=== PATIENT | female | born 1995 | race Two or more races ===

== ENCOUNTER 2019-11-02 21:21 | Observation (INO) | payer MEDICAID ==
[~2019-11-02] VITALS: Ht 157.5 cm; Wt 74.8 kg
[2019-11-02] MEDS ORDERED: PREN1TAB78 PO (22:04)
[2019-11-02] MEDS ORDERED: FERR-71 PO (22:04)
== END 2019-11-03 02:10 | disposition home or self-care (01) ==
LOC: 8 EST LDRP 21:21
PROVIDERS: ADMIT Obstetrics & Gynecology; ATTEND Obstetrics & Gynecology
DX: O9A.213 Injury, poisoning and certain other consequences of external causes complicating pregnancy, third trimester (principal); O36.8130 Decreased fetal movements, third trimester, not applicable or unspecified; Z3A.37 37 weeks gestation of pregnancy; V89.2XXA Person injured in unspecified motor-vehicle accident, traffic, initial encounter; Y93.9 Activity, unspecified; Y92.9 Unspecified place or not applicable; Y99.9 Unspecified external cause status
CPT/HCPCS: 76805; 76818; 99281; G0378

== ENCOUNTER 2019-11-18 11:38 | Inpatient (IN) | payer MEDICAID, OTHER ==
[~2019-11-18] VITALS: Ht 157.5 cm; Wt 75.7 kg
[~2019-11-18 11:38] MED LIST: FERR-71 PO; PREN1TAB78 PO
[2019-11-18] MEDS ORDERED: BUTORPHANOL TARTRATE 2 MG/ML VIAL IV PRN (12:45)
[2019-11-18] MEDS ORDERED: LIDOCAINE HCL 1% 20ML VIAL (Pyxis) INJ INFIL PRN (12:45)
[2019-11-18] MEDS ORDERED: DEXT 5%/LR + PITOCIN 20UNITS/L 1,000 ML IV PRN (12:45)
[2019-11-18] MEDS ORDERED: CARBOPROST TROMETHAMINE 250 MCG/ML AMPUL IM PRN (12:45)
[2019-11-18] MEDS ORDERED: MISOPROSTOL 100MCG TABLET VG PRN (12:45)
[2019-11-18] MEDS ORDERED: NALOXONE HCL 0.4 MG/ML 1ML VIAL IM PRN (12:45)
[2019-11-18] MEDS ORDERED: PENICILLIN G POTASSIUM 5 MMU in DEXT 5% WATER 100 ML IV SCH (13:00)
[2019-11-18 13:13] LABS: BASOPHILS % 0.5 % (0.0-2.0); EOSINOPHILS % 0.4 % (0.0-5.0); HEMATOCRIT. 36.3 % (36.0-48.0); HEMOGLOBIN. 12.5 g/dL (12.0-16.0); LYMPHOCYTES % 13.6 % (20.0-50.0); MEAN CORPUSCULAR VOLUME 89.8 fL (81.0-99.0); MEAN PLATELET VOLUME 9.1 fl (7.4-10.4); MONOCYTES % 4.3 % (2.0-8.0); NEUTROPHILS % 81.2 % (40.0-76.0); PLATELET 274 x1000/uL (130-400); RED BLOOD CELL COUNT 4.04 mill/uL (4.2-5.4); RED CELL DISTRIBUTION WIDTH 14.6 % (11.6-14.6)
[2019-11-18 13:14] LABS: CLARITY URINE CLEAR (CLEAR); COLOR URINE YELLOW (YELLOW); KETONES URINE TRACE (NEGATIVE); LEUKOCYTE ESTERASE URINE TRACE (NEGATIVE); NITRITE URINE NEGATIVE (NEGATIVE); OCCULT BLOOD URINE NEGATIVE (NEGATIVE); PH URINE 7.5 (4.5-8.0); PROTEIN URINE TRACE (NEGATIVE); SPECIFIC GRAVITY URINE 1.012 (1.005-1.030); UROBILINOGEN URINE 0.2 E.U./dL (0.2-1.0)
[2019-11-18 13:17] LABS: INR 0.9; PARTIAL THROMBOPLASTIN TIME 26.6 sec (23.4-31.0); PROTHROMBIN TIME 9.1 sec (9.6-11.0)
[2019-11-18 13:55] LABS: CHLORIDE 107 mEq/L (98-107)
[2019-11-18 14:02] LABS: *AMPHETAMINES SCREEN URINE NEGATIVE (NEGATIVE); *BARBITURATES SCREEN URINE NEGATIVE (NEGATIVE); *BENZODIAZEPINES SCREEN URINE NEGATIVE (NEGATIVE); *COCAINE SCREEN URINE NEGATIVE (NEGATIVE); METHADONE URINE SCREEN NEGATIVE (NEGATIVE)
[2019-11-18 14:03] LABS: CANNABINOID URINE SCREEN NEGATIVE (NEGATIVE); OPIATES URINE SCREEN NEGATIVE (NEGATIVE); PHENCYCLIDINE URINE SCREEN NEGATIVE (NEGATIVE)
[2019-11-18] MEDS: LACTATED RINGERS 1,000 ML IV SCH ×2 (14:04→14:27)
[2019-11-18 14:31] LABS: HEPATITIS B SURFACE ANTIGEN NEGATIVE
[2019-11-18] MEDS ORDERED: PENICILLIN G POTASSIUM 2.5 MMU in DEXTROSE 5% WATER 50 ML IV SCH (17:00)
[2019-11-18] MEDS ORDERED: AMPICILLIN 2,000 MG in SODIUM CHLORIDE 0.9% 100 ML IV NR (20:30)
[2019-11-18] MEDS ORDERED: METHYLERGONOVINE MALEATE 0.2 MG/ML IM PRN (22:15)
[2019-11-18] MEDS ORDERED: DEXT 5%/LR + PITOCIN 20UNITS/L 1,000 ML IV SCH (22:16)
[2019-11-18] MEDS ORDERED: LANOLIN OINT 7GM TUBE TOP PRN (22:30)
[2019-11-18] MEDS ORDERED: GLYCERIN/WITCH HAZEL LEAF MEDICATED PAD TOP PRN (22:30)
[2019-11-18] MEDS ORDERED: INFLUENZA VIRUS VACCINE(AFLURIA) 0.5ML SYR IM ONE (22:30)
[2019-11-18] MEDS ORDERED: IBUPROFEN 400MG TABLET PO PRN (22:30)
[2019-11-18] MEDS ORDERED: TETANUS, DIPHTHERIA, PERTUSSIS VAC/PF 0.5ML (>7YR OLD) IM ONE (22:30)
[2019-11-18] MEDS ORDERED: BISACODYL 10MG SUPP PR PRN (22:30)
[2019-11-18] MEDS ORDERED: HEMORRHOIDAL SUPP PR PRN (22:30)
[2019-11-18] MEDS ORDERED: BENZOCAINE/LANOLIN/ALOE VERA SPRAY TOP PRN (22:30)
[2019-11-18] MEDS ORDERED: DIPHENHYDRAMINE 25MG CAPSULE PO PRN (22:30)
[2019-11-19 00:05] VITALS: BP 122/75
[2019-11-19] MEDS: IBUPROFEN 800MG TABLET PO PRN ×2 (00:05→17:09)
[2019-11-19 01:00] VITALS: BP 123/76
[2019-11-19] MEDS ORDERED: AMPICILLIN 1,000 MG in SODIUM CHLORIDE 0.9% 50 ML IV SCH (03:00)
[2019-11-19 05:00] VITALS: BP 122/70
[2019-11-19 07:07] LABS: BASOPHILS % 0.2 % (0.0-2.0); HEMATOCRIT. 30.3 % (36.0-48.0); HEMOGLOBIN. 10.2 g/dL (12.0-16.0); LYMPHOCYTES % 8.8 % (20.0-50.0); MEAN CORPUSCULAR HEMOGLOBIN 30.3 pg (28.0-32.0); MEAN CORPUSCULAR VOLUME 90.2 fL (81.0-99.0); MEAN PLATELET VOLUME 9.5 fl (7.4-10.4); MONOCYTES % 5.2 % (2.0-8.0); NEUTROPHILS % 85.8 % (40.0-76.0); PLATELET 257 x1000/uL (130-400); RED BLOOD CELL COUNT 3.36 mill/uL (4.2-5.4); RED CELL DISTRIBUTION WIDTH 14.9 % (11.6-14.6)
[2019-11-19] MEDS ORDERED: PRENATAL VIT/FE FUMARATE/FA TABLET PO SCH (09:00)
[2019-11-19] MEDS: ACETAMINOPHEN WITH CODEINE 300/30MG TABLET PO PRN ×2 (09:21→21:24)
[2019-11-19] MEDS: FERROUS SULFATE 325MG TABLET PO SCH ×3 (09:21→17:11)
[2019-11-19] MEDS: SIMETHICONE 80MG TABLET CHEW PO SCH ×4 (09:21→21:22)
[2019-11-19] MEDS: MAGNESIUM/ALUMINUM HYDROXIDE/SIMETHICONE 30ML UDC PO SCH ×4 (09:22→21:25)
[2019-11-19 12:37] VITALS: BP 105/65
[2019-11-19 17:06] VITALS: BP 106/63
[2019-11-19] MEDS ORDERED: DOCUSATE SODIUM 100MG CAPSULE PO SCH (21:00)
[2019-11-20 10:30] VITALS: BP 112/66
[2019-11-20] MEDS: IBUPROFEN 800MG TABLET PO PRN (12:37)
[2019-11-20] MEDS: MAGNESIUM/ALUMINUM HYDROXIDE/SIMETHICONE 30ML UDC PO SCH (12:37)
[2019-11-20] MEDS: FERROUS SULFATE 325MG TABLET PO SCH (12:38)
[2019-11-20] MEDS: SIMETHICONE 80MG TABLET CHEW PO SCH (12:39)
== END 2019-11-20 13:00 | disposition home or self-care (01) | DRG 560 ==
LOC: INTOOBSV 11:38 → OBSVTOIN 11:38 → 8 EST LDRP 11:38 → 8EST 23:59
PROVIDERS: ADMIT Specialist; ATTEND Specialist
PROC: 10E0XZZ Delivery of Products of Conception, External Approach (ICD-10-PCS; principal; 2019-11-18)
PROC: 0KQM0ZZ Repair Perineum Muscle, Open Approach (ICD-10-PCS; 2019-11-18)
DX: O69.81X0 Labor and delivery complicated by cord around neck, without compression, not applicable or unspecified (principal); O70.1 Second degree perineal laceration during delivery; Z37.0 Single live birth; Z3A.40 40 weeks gestation of pregnancy
CPT/HCPCS: 36415; 80053; 80305; 81003; 84550; 85025; 85384; 86592; 86703; 86762; 86850; 86900; 87340; 99281; C1893; G0378; J0290; J2540; J2590; J3490; J7050; J7060